=== PATIENT | female | born 1960 | race African-American/Black ===

== ENCOUNTER 2021-03-12 09:58 | Emergency (ER) | payer BC ==
[2021-03-12] MEDS ORDERED: SODIUM CHLORIDE 0.9% 1,000 ML IV STA (10:18)
[2021-03-12 10:34] LABS: Basophils % (A) 1 %; Eosinophils # (A) 0.2 k/uL (0-0.7); Eosinophils % (A) 4 %; HCT 46.3 % (34.0-46.0); Lymphocytes % (A) 42 %; MCH 29.5 pg (25.0-35.0); MCHC 32.5 g/dL (31.0-37.0); MCV 90.9 fL (80.0-100.0); Mean Platelet Volume 7.1; Monocytes # (A) 0.5 k/uL (0-1.0); Monocytes % (A) 10 %; Neutrophils % (A) 41 %; Platelet Count 296 k/uL (150-450); RBC 5.09 m/uL (3.80-5.40); RDW 13.1 % (11.5-15.5); WBC 4.7 k/uL (3.8-10.6)
--- NOTE | 2021-03-12 10:42 | ED ---
General Adult HPI - General Chief complaint: Dizziness Stated complaint: Low BP Time Seen by Provider: 03/12/21 09:59 Source: patient, EMS, RN notes reviewed Mode of arrival: EMS Limitations: no limitations - History of Present Illness Initial comments: 60-year-old female presents emergency department via EMS from [place] for near syncopal episode. Patient states she got up quickly went to walk states that s and felt nauseated. Patient denies any chest pain shortness breath. Patient states he states] time. Patient states she is there for alcohol and cocaine abuse. Patient states she has no complaints at this time no prior cardiac disease.he standing became very flushed feeling, dizzy - Related Data Allergies Allergy/AdvReac Type Severity Reaction Status Date / Time No Known Allergies Allergy Verified 03/12/21 10:04 Review of Systems ROS Statement: Those systems with pertinent positive or pertinent negative responses have been documented in the HPI. ROS Other: All systems not noted in ROS Statement are negative. General Exam Limitations: no limitations General appearance: alert, in no apparent distress Head exam: Present: atraumatic, normocephalic, normal inspection ENT exam: Present: normal exam, normal oropharynx, mucous membranes moist Neck exam: Present: normal inspection, full ROM. Absent: tenderness, meningismus, lymphadenopathy Respiratory exam: Present: normal lung sounds bilaterally. Absent: respiratory distress, wheezes, rales, rhonchi, stridor Cardiovascular Exam: Present: regular rate, normal rhythm, normal heart sounds. Absent: systolic murmur, diastolic murmur, rubs, gallop, clicks GI/Abdominal exam: Present: soft, normal bowel sounds. Absent: distended, tenderness, guarding, rebound, rigid Neurological exam: Present: alert Skin exam: Present: warm, dry, intact, normal color. Absent: rash Course Vital Signs 03/12/21 03/12/21 10:02 11:18 Temperature 97.5 F L Pulse Rate 56 L 53 L Respiratory 17 19 Rate Blood Pressure 152/95 135/85 O2 Sat by Pulse 99 99 Oximetry Medical Decision Making - Medical Decision Making 60-year-old presented for near syncopal episode workup was negative at this ti ms. Patient has no acute symptoms. Patient discharged in stable condition return parameters were discussed. - Lab Data Result diagrams: 03/12/21 10:24 03/12/21 10:24 Lab Results 03/12/21 03/12/21 03/12/21 Range/Units 10:24 10:24 10:24 WBC 4.7 (3.8-10.6) k/uL RBC 5.09 (3.80-5.40) m/uL Hgb 15.0 (11.4-16.0) gm/dL Hct 46.3 H (34.0-46.0) % MCV 90.9 (80.0-100.0) fL MCH 29.5 (25.0-35.0) pg MCHC 32.5 (31.0-37.0) g/dL RDW 13.1 (11.5-15.5) % Plt Count 296 (150-450) k/uL MPV 7.1 Neutrophils % 41 % Lymphocytes % 42 % Monocytes % 10 % Eosinophils % 4 % Basophils % 1 % Neutrophils # 2.0 (1.3-7.7) k/uL Lymphocytes # 2.0 (1.0-4.8) k/uL Monocytes # 0.5 (0-1.0) k/uL Eosinophils # 0.2 (0-0.7) k/uL Basophils # 0.0 (0-0.2) k/uL Sodium 137 (137-145) mmol/L Potassium 4.1 (3.5-5.1) mmol/L Chloride 98 (98-107) mmol/L Carbon Dioxide 33 H (22-30) mmol/L Anion Gap 6 mmol/L BUN 14 (7-17) mg/dL Creatinine 0.83 (0.52-1.04) mg/dL Est GFR (CKD-EPI)AfAm 90 (>60 ml/min/1.73 sqM) Est GFR (CKD-EPI)NonAf 78 (>60 ml/min/1.73 sqM) Glucose 127 H (74-99) mg/dL Calcium 9.6 (8.4-10.2) mg/dL Magnesium 1.8 (1.6-2.3) mg/dL Total Bilirubin 0.2 (0.2-1.3) mg/dL AST 38 H (14-36) U/L ALT 31 (4-34) U/L Alkaline Phosphatase 79 (38-126) U/L Troponin I <0.012 (0.000-0.034) ng/mL Total Protein 6.8 (6.3-8.2) g/dL Albumin 3.5 (3.5-5.0) g/dL Disposition Clinical Impression: Vasovagal near syncope Disposition: HOME SELF-CARE Condition: Stable Instructions (If sedation given, give patient instructions): Dizziness (ED) Additional Instructions: Please return to the Emergency Department if symptoms worsen or any other concerns. Is patient prescribed a controlled substance at d/c from ED?: No Referrals: Nonstaff,Physician [Primary Care Provider] - 1-2 days Time of Disposition: 11:26
[2021-03-12 11:06] LABS: Albumin 3.5 g/dL (3.5-5.0); Calcium 9.6 mg/dL (8.4-10.2); Magnesium 1.8 mg/dL (1.6-2.3); Potassium 4.1 mmol/L (3.5-5.1); Total Bilirubin 0.2 mg/dL (0.2-1.3); Total Protein 6.8 g/dL (6.3-8.2)
[2021-03-12 11:47] VITALS: BP 152/76; PULSE 72; RESP 18; TEMP 97
== END 2021-03-12 11:47 | disposition home or self-care (01) ==
LOC: EC 09:58
DX: R55 Syncope and collapse (principal)
CPT/HCPCS: 36415; 80053; 83735; 84484; 85025; 93005; 96360; 99284

== ENCOUNTER 2024-04-22 08:20 | Emergency (ER) | payer MEDICARE, OTHER ==
[2024-04-22] MEDS ORDERED: SODIUM CHLORIDE 0.9% 1,000 ML BAG ONE (08:50)
--- NOTE | 2024-05-16 09:01 | XR ---
synapse default - Radiology Report Patient: Florina Farrell Ordering Physician: Unknown, Unknown ID: [id number] Phone, Pager: Phone: N/A Pager: N/A : 1960 Age/Gender: 64Y, F Primary Location: N/A Procedure: XR Chest 1 View Study Date: 04/22/2024 10:04:00 AM EXAMINATION TYPE: XR chest 1V DATE OF EXAM: 04/22/2024 HISTORY: Shortness of breath. COMPARISON: None. TECHNIQUE: Single view of the chest is submitted. FINDINGS: Demonstrated are scattered senescent parenchymal change. There is no evidence for focal infiltrate. The heart is stable. Hilar and mediastinal structures are within normal limits. Degenerative changes are seen of the dorsal spine. IMPRESSION: 1. Chronic changes without evidence for acute pulmonary disease.
== END 2024-04-22 10:18 | disposition home or self-care (01) ==
LOC: EC 08:20
CPT/HCPCS: 71045; 93005; 99284